=== PATIENT | female | born 1970 | race Caucasian/White ===

== ENCOUNTER 2017-03-31 14:28 | Emergency (ER) | payer MEDICAID ==
[2017-03-31 15:00] VITALS: BMI 23.8
[2017-03-31] MEDS ORDERED: Sodium Chloride 0.9% 500 ML IV ONE ×2 (16:29→16:46)
--- NOTE | 2017-03-31 16:32 | C.PDOC ---
History Of Present Illness PT WAS WAITING OUTSIDE FOR 2 HOURS PRIOR WAS SEEING BY ME 46 yo female w/PMHx of bipolar come in for evaluation of epigastric pain, nausea developed since yesterday. Pt reports, pain is localized, non-radiating, intermittent, aching. Pt sts, " recently had my gallbladder removed, want to make sure all is good". Otherwise, pt denies fever, chills, sore throat, CP, SOB , dyspnea, diaphoresis, palpitation, V/D, hematemesis, melena, back pain, UTI sx. Ambulate to ED for evaluation, not in any apparent distress. Time Seen by Provider: 03/31/17 16:04 Chief Complaint (Nursing): Abdominal Pain History Per: Patient Past Medical History Reviewed: Historical Data, Nursing Documentation, Vital Signs Vital Signs: Last Vital Signs Temp 98.3 F 03/31/17 18:17 Pulse 64 03/31/17 18:17 Resp 18 03/31/17 18:17 BP 105/71 03/31/17 18:17 Pulse Ox 99 03/31/17 18:17 - Medical History PMH: Bipolar Disorder Surgical History: Carotid Endarterectomy, Cholecystectomy Family History: States: No Known Family Hx - Social History Hx Tobacco Use: No Hx Alcohol Use: No Hx Substance Use: No Review Of Systems Except As Marked, All Systems Reviewed And Found Negative. Constitutional: Negative for: Fever, Chills Eyes: Negative for: Vision Change ENT: Negative for: Ear Discharge, Nose Discharge, Throat Pain, Throat Swelling Cardiovascular: Negative for: Chest Pain Respiratory: Negative for: Cough, Shortness of Breath, Wheezing Gastrointestinal: Positive for: Abdominal Pain. Negative for: Vomiting, Diarrhea, Melena, Hematochezia, Hematemesis Genitourinary: Negative for: Dysuria, Frequency Musculoskeletal: Negative for: Neck Pain, Back Pain Skin: Negative for: Rash Neurological: Negative for: Weakness, Numbness, Altered Mental Status, Headache , Dizziness Physical Exam - Physical Exam Appears: Well, Non-toxic, No Acute Distress Skin: Normal Color, Warm, No Rash Head: Normacephalic Eye(s): bilateral: PERRL Oral Mucosa: Moist Throat: No Drooling Neck: Supple Cardiovascular: Rhythm Regular, No Murmur, No JVD Respiratory: No Decreased Breath Sounds, No Accessory Muscle Use, No Rales Gastrointestinal/Abdominal: Soft, Tenderness (mild epigastric), No Distention, No Guarding Back: No CVA Tenderness Extremity: Normal ROM, No Pedal Edema, No Deformity Neurological/Psych: Oriented x3, Normal Speech ED Course And Treatment - Laboratory Results Result Diagrams: 03/31/17 16:36 03/31/17 16:36 Lab Interpretation: Normal O2 Sat by Pulse Oximetry: 98 Pulse Ox Interpretation: Normal Progress Note: On re-evaluation, pt is afebrile, hemodynamicaly stable. Non- toxic. AMbulatory in ED with stable gait. ENT: no acute findings. Lungs: CTA B/L, BS equal B/L. Abd: benign, (-) guarding, (-) rebound, (-) localized tenderness. Back: (-) CVA tenderness. Blood work review and appears normal. UA c/w UTI. PT advised on course of ds. ref. to F/U with PMD in 2-3 days for re-eavl. return to ED if any worsening or new changes. Disposition Counseled Patient/Family Regarding: Studies Performed, Diagnosis, Need For Followup, Rx Given - Disposition Referrals: [facility] [Outside] Disposition: HOME/ ROUTINE Disposition Time: 17:39 Condition: STABLE Additional Instructions: ENCOURAGE FLUIDS CRANBERRY SUPPLEMENT TAKE MEDICATION PRESCRIBED FOLLOW UP WITH PMD IN 2-3 DAYS FOR RE-EVALUATION. RETURN TO ED IF ANY WORSENING OR NEW CHANGES, Prescriptions: Nitrofurantoin Macrocrystals [Macrobid] 1 cap PO BID #14 cap Instructions: Urinary Tract Infection in Women (ED) Forms: [employer] ([place]i) - Clinical Impression Clinical Impression: UTI (urinary tract infection)
[2017-03-31 16:45] LABS: BASO # 0.1 K/uL (0.0-0.2); EOS # 0.1 K/uL (0.0-0.7); EOS % 1.1 % (0.0-4.0); HEMATOCRIT 40.5 % (34.0-47.0); MEAN CELL VOLUME 89.9 fL (81.0-99.0); MEAN CORPUSCULAR HEMOGLOBIN 30.1 pg (27.0-31.0); MEAN CORPUSCULAR HGB CONC 33.5 g/dL (33.0-37.0); MEAN PLATELET VOLUME 9.9 fL (7.2-11.7); MONO # 0.5 K/uL (0.0-0.8); MONO % 7.7 % (0.0-10.0); NRBC % 0.1 % (0.0-2.0); RED CELL DISTRIBUTION WIDTH 13.4 % (11.5-14.5); WHITE BLOOD COUNT 6.8 K/uL (4.8-10.8)
[2017-03-31 16:51] LABS: RBC URINE 8 /hpf (0-3); URINE BACTERIA RARE (<OCC); URINE BILIRUBIN NEGATIVE (NEGATIVE); URINE BLOOD NEGATIVE (NEGATIVE); URINE COLOR Yellow (YELLOW); URINE GLUCOSE (UA) NORMAL (Normal); URINE KETONE TRACE mg/dL (NEGATIVE); URINE LEUKOCYTE ESTERASE 3+ Leu/uL (Negative); URINE PROTEIN NEGATIVE (NEGATIVE); URINE UROBILINOGEN NORMAL mg/dL (0.2-1.0); WBC URINE 17 /hpf (0-5)
[2017-03-31 16:54] LABS: ALKALINE PHOSPHATASE 48 U/L (38-126); ALT/SGPT 49 U/L (9-52); AST/SGOT 38 U/L (14-36); BILIRUBIN,TOTAL 1.7 mg/dL (0.2-1.3); BLOOD UREA NITROGEN 10 mg/dL (7-17); CALCIUM 8.9 mg/dl (8.6-10.4); CARBON DIOXIDE 33 mmol/L (22-30); CHLORIDE 98 mmol/L (98-107); GFR AFRICAN-AMERICAN > 60; GLUCOSE,RANDOM 85 mg/dL (65-105); POTASSIUM 3.8 mmol/L (3.6-5.2); SODIUM 141 mmol/L (132-148); TOTAL PROTEIN 8.4 g/dL (6.3-8.3)
[2017-03-31 17:32] VITALS: RESP 18
[2017-03-31 18:18] VITALS: BP 105/71; PULSE 64; TEMP 98.3
[2017-04-01 08:32] VITALS: O2SAT 98
== END 2017-03-31 18:56 | disposition home or self-care (01) ==
LOC: C.ER 14:28
DX: N39.0 Urinary tract infection, site not specified (principal)
CPT/HCPCS: 80053; 81001; 83690; 85025; 96361; 96365; 96375; 99284; J0696; J2405; J7040

== ENCOUNTER 2017-05-06 13:40 | Emergency (ER) | payer MEDICAID ==
[2017-05-06 13:40] VITALS: BMI 23.8
[2017-05-06 14:02] VITALS: O2SAT 100
--- NOTE | 2017-05-06 14:20 | C.PDOC ---
History Of Present Illness 47 yo female come in for evaluation of bodyaches, nasal congestion, runny nose , sore throat, dry cough gradually developed for past 2 days. Otherwise, pt denies high fever, chills, headache, dizziness, drooling, neck pain, CP, SOB, wheezing, palpitation, abd. pain, V/D, rash, denies recent travel or known sick contact. At the time of evaluation, pt is awake, comfortable, not in any apparent distress Time Seen by Provider: 05/06/17 14:14 Chief Complaint (Nursing): Cough, Cold, Congestion History Per: Patient Onset/Duration Of Symptoms: Gradual Past Medical History Reviewed: Historical Data, Nursing Documentation, Vital Signs Vital Signs: Last Vital Signs Temp 98.4 F 05/06/17 15:23 Pulse 88 05/06/17 15:23 Resp 16 05/06/17 15:23 BP 126/78 05/06/17 15:23 Pulse Ox 100 05/06/17 15:23 - Medical History PMH: Anxiety, Bipolar Disorder Surgical History: Carotid Endarterectomy, Cholecystectomy Family History: States: No Known Family Hx - Social History Hx Tobacco Use: No Hx Alcohol Use: No Hx Substance Use: No - Immunization History Hx Tetanus Toxoid Vaccination: No Hx Influenza Vaccination: No Hx Pneumococcal Vaccination: No Review Of Systems Except As Marked, All Systems Reviewed And Found Negative. Constitutional: Negative for: Fever, Chills ENT: Positive for: Nose Discharge, Nose Congestion, Throat Pain. Negative for: Throat Swelling Cardiovascular: Negative for: Chest Pain, Palpitations, Orthopnea Respiratory: Positive for: Cough. Negative for: Shortness of Breath, Wheezing Gastrointestinal: Negative for: Nausea, Vomiting, Abdominal Pain, Diarrhea Genitourinary: Negative for: Dysuria, Frequency Musculoskeletal: Negative for: Neck Pain, Back Pain Skin: Negative for: Rash Neurological: Negative for: Weakness, Numbness, Altered Mental Status, Headache , Dizziness Physical Exam - Physical Exam Appears: Well, Non-toxic, No Acute Distress Skin: Normal Color, Warm, Dry, No Rash Head: Normacephalic Eye(s): bilateral: PERRL Ear(s): Bilateral: Normal Nose: No Flaring, Discharge Oral Mucosa: Moist, No Drooling Throat: Erythema (mod B/L), Exudate (scant B/L), No Drooling Neck: Trachea Midline, Supple Cardiovascular: Rhythm Regular Respiratory: No Decreased Breath Sounds, No Accessory Muscle Use, No Stridor, No Wheezing Gastrointestinal/Abdominal: Soft, No Tenderness, No Distention, No Guarding Back: No CVA Tenderness Extremity: Normal ROM, No Deformity, No Swelling Neurological/Psych: Oriented x3, Normal Speech ED Course And Treatment O2 Sat by Pulse Oximetry: 100 Pulse Ox Interpretation: Normal Progress Note: On re-eval, pt is afebrile, hemodynamicaly stable. Non-toxic. Tolerate Po well in ED. PuslEOx 100% RA. ENT: exam c/w acute pharyngitis, uvula midline, no edema. neck: SUpple, (-) meningeal sign. Lungs: CTA B/L, BS equal B/L. Abd: benign, (-) guarding, (-) rebound. Back: (-) CVA tenderness. Pt advised. ref. to F/u with Ped in 2-3 days for re-eavl. return if any new chanegs. Disposition Counseled Patient/Family Regarding: Diagnosis, Need For Followup, Rx Given - Disposition Referrals: [facility] at [facility] [Outside] Disposition: HOME/ ROUTINE Disposition Time: 14:43 Condition: STABLE Additional Instructions: Take medication as prescribed Encourage fluids Follow up with PMD in 2-3 days for re-evaluation. return to ED if any worsening or new changes. Prescriptions: Azithromycin [Zithromax] 250 mg PO DAILY #4 tab Benzonatate [Tessalon Perle] 100 mg PO TID #10 capsule Ibuprofen [Motrin] 1 tab PO TID PRN #14 tab PRN Reason: Pain Instructions: Pharyngitis (ED) Forms: [employer] (Serbian) - Clinical Impression Clinical Impression: Pharyngitis
[2017-05-06] MEDS ORDERED: Albuterol 0.083% Inhal Sol (2.5 mg/3 mL) UD IH STA (14:38)
[2017-05-06] MEDS ORDERED: Albuterol 0.083% Inhal Sol (2.5 mg/3 mL) UD ONE (15:07)
[2017-05-06 15:23] VITALS: BP 126/78; PULSE 88; RESP 16; TEMP 98.4
== END 2017-05-06 15:39 | disposition home or self-care (01) ==
LOC: C.ER 13:40
DX: J02.9 Acute pharyngitis, unspecified (principal)

== ENCOUNTER 2017-05-28 09:01 | Emergency (ER) | payer MEDICAID ==
[2017-05-28 09:01] VITALS: BMI 23.8
[2017-05-28 09:20] VITALS: PULSE 72
[2017-05-28] MEDS ORDERED: Bacitracin 500 Units/gm Oint Foilpak UD TOP ONE (10:01)
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
[2017-05-28] MEDS ORDERED: Bacitracin 500 Units/gm Oint Foilpak UD ONE (10:10)
[2017-05-28 10:13] VITALS: BP 118/78; RESP 14; TEMP 98.3; O2SAT 96
== END 2017-05-28 10:13 | disposition home or self-care (01) ==
LOC: C.ER 09:01
DX: S00.81XA Abrasion of other part of head, initial encounter (principal); S20.221A Contusion of right back wall of thorax, initial encounter; S60.221A Contusion of right hand, initial encounter; Y04.2XXA Assault by strike against or bumped into by another person, initial encounter; Y92.89 Other specified places as the place of occurrence of the external cause

== ENCOUNTER → 2017-06-26 19:06 | Emergency (ER) | payer MEDICAID ==
[2017-06-26 19:06] VITALS: BMI 23.8
== END | disposition left against medical advice (07) ==
LOC: C.ER 19:06
DX: Z02.89 Encounter for other administrative examinations (principal); R52 Pain, unspecified

== ENCOUNTER 2017-06-27 18:14 | Emergency (ER) | payer MEDICAID ==
[2017-06-27 18:15] VITALS: BMI 23.8
[2017-06-27 18:26] VITALS: RESP 18
[2017-06-27] MEDS ORDERED: Sodium Chloride 0.9% 1,000 ML IV ONE (19:06)
--- NOTE | 2017-06-27 19:16 | C.PDOC ---
History Of Present Illness 47 y/o female, hx of bipolar disorder, presents to ED with complaints of right flank pain that began 5 days ago. Patient states "pain gets worst before a bowel movement." Denies hematuria or any urinary symptoms. Time Seen by Provider: 06/27/17 19:01 Chief Complaint (Nursing): Back Pain History Per: Patient History/Exam Limitations: no limitations Onset/Duration Of Symptoms: Days (5) Current Symptoms Are (Timing): Still Present Quality Of Discomfort: "Pain" Previous Symptoms: None Associated Symptoms: None Exacerbating Factor(s): Nothing Recent travel outside of the [place]: No Past Medical History Reviewed: Historical Data, Nursing Documentation, Vital Signs Vital Signs: Last Vital Signs Temp 97.7 F 06/27/17 22:18 Pulse 71 06/27/17 22:18 Resp 18 06/27/17 22:18 BP 119/79 06/27/17 22:18 Pulse Ox 100 06/27/17 22:18 - Medical History PMH: Anxiety, Bipolar Disorder, Hyperthyroidism Surgical History: Carotid Endarterectomy, Cholecystectomy Family History: States: Unknown Family Hx - Social History Hx Tobacco Use: No Hx Alcohol Use: No Hx Substance Use: No - Immunization History Hx Tetanus Toxoid Vaccination: Yes (2 YEARS AGO) Hx Influenza Vaccination: No Hx Pneumococcal Vaccination: No Review Of Systems Constitutional: Negative for: Fever, Chills Gastrointestinal: Negative for: Nausea, Vomiting, Diarrhea Genitourinary: Negative for: Dysuria, Hematuria Musculoskeletal: Positive for: Other (Right flank pain) Neurological: Negative for: Weakness, Numbness Physical Exam - Physical Exam Appears: Well, Non-toxic, No Acute Distress Skin: Normal Color, Warm, Dry Head: Atraumatic, Normacephalic Eye(s): bilateral: Normal Inspection Oral Mucosa: Moist Neck: Supple Chest: Symmetrical, No Tenderness Cardiovascular: Rhythm Regular Respiratory: Normal Breath Sounds, No Decreased Breath Sounds, No Rales, No Rhonchi, No Wheezing Gastrointestinal/Abdominal: Soft, No Tenderness Neurological/Psych: Oriented x3, Normal Speech, Normal Cognition ED Course And Treatment - Laboratory Results Result Diagrams: 06/27/17 19:22 06/27/17 19:22 O2 Sat by Pulse Oximetry: 97 (RA) Pulse Ox Interpretation: Normal - CT Scan/US CT Abdomen&Pelvis Other Rad Studies (CT/US): Read By Radiologist, Radiology Report Reviewed CT/US Interpretation: EXAM: CT Abdomen and Pelvis Without Intravenous Contrast. CLINICAL HISTORY: 47 years old, female; Pain; Abdominal pain; Flank; Right lower quadrant (rlq);. Additional info: Right flank pain. TECHNIQUE: Axial computed tomography images of the abdomen and pelvis without intravenous. contrast. All CT scans at this facility use one or more dose reduction techniques, viz.: automated. exposure control; ma/kV adjustment per patient size (including targeted exams where dose is. matched to indication; i.e. head) ; or iterative reconstruction technique. COMPARISON: No relevant prior studies available. FINDINGS: Lower thorax: No acute findings. ABDOMEN: Liver: Unremarkable. Gallbladder and bile ducts: Cholecystectomy. No ductal dilation. Pancreas: Unremarkable. No ductal dilation. Spleen: Unremarkable. No splenomegaly. Adrenals: Unremarkable. No mass. Kidneys and ureters: Unremarkable. No stones within either kidney or ureter and no hydronephrosis. Stomach and bowel: Mucosal thickening in the colon concerning for colitis. No obstruction. Appendix: Normal appendix. PELVIS: Bladder: Surgical clip is seen over the dome of the right hepatic lobe. This is probably a fallen. cystectomy clip. MATT VU | Preliminary Radiology Report. IMPLANT COORDINATOR (QA) DISCREPANCY? If there is a discrepancy between the preliminary and final interpretation, please notify [facility] via [email or web address]. If you do not have access to our QA portal, call our QA team at [phone]. CONFIDENTIALITY STATEMENT. This report is intended only for the use of the referring physician, and only in accordance with law, If you received this in error, call [phone]. Page 2 of 2. Reproductive: Unremarkable as visualized. ABDOMEN and PELVIS: Intraperitoneal space: Unremarkable. No free air. No significant fluid collection. Bones/joints : No acute fracture. No dislocation. Soft tissues: Unremarkable. Vasculature: Unremarkable. No abdominal aortic aneurysm. Lymph nodes: Unremarkable. No enlarged lymph nodes. IMPRESSION: 1. No stones within either kidney or ureter and no hydronephrosis. 2. Normal appendix. 3. Mucosal thickening in the colon concerning for colitis. Medical Decision Making Medical Decision Making: ro uti, renal colic. - lasb imaging pending Ordered CT Abd& Pelvis, blood work, and urinalysis. Administered IV fluid. pt reassesed pain resolved. multiple times askingfor dc. agrees to wait for ct results. ct shows possible colitis. will treat. abd soft nottp. advise outpt fu and return precautions Disposition - Disposition Referrals: Jaylen Garcia MD [Staff Provider] - Disposition: HOME/ ROUTINE Disposition Time: 10:00 Condition: STABLE Additional Instructions: follow up with your doctor and specialist. return to er with worsening symptoms or concerns. Prescriptions: Ciprofloxacin [Cipro] 500 mg PO BID #20 tab metroNIDAZOLE [Flagyl] 500 mg PO TID #30 tab Instructions: Urinary Tract Infection, Adult (DC), Acute Abdomen (Belly Pain) Forms: [employer] ([place]izen [place]) - Clinical Impression Clinical Impression: UTI (urinary tract infection), Colitis, Flank pain - Scribe Statement The provider has reviewed the documentation as recorded by the Scribe Lyndsey Perrin All medical record entries made by the Keelyibolya were at my direction and personally dictated by me. I have reviewed the chart and agree that the record accurately reflects my personal performance of the history, physical exam, medical decision making, and the department course for this patient. I have also personally directed, reviewed, and agree with the discharge instructions and disposition.
[2017-06-27 19:25] LABS: BASO # 0.1 K/uL (0.0-0.2); EOS # 0.1 K/uL (0.0-0.7); EOS % 0.9 % (0.0-4.0); HEMOGLOBIN 12.2 g/dL (11.0-16.0); LYMPH # 2.2 K/uL (1.0-4.3); LYMPH % 23.7 % (20.0-40.0); MEAN CORPUSCULAR HEMOGLOBIN 29.9 pg (27.0-31.0); MEAN CORPUSCULAR HGB CONC 34.2 g/dL (33.0-37.0); MEAN PLATELET VOLUME 9.5 fL (7.2-11.7); MONO # 0.7 K/uL (0.0-0.8); MONO % 7.4 % (0.0-10.0); NEUT # 6.1 K/uL (1.8-7.0); RBC 4.08 Mil/uL (3.80-5.20); RED CELL DISTRIBUTION WIDTH 13.4 % (11.5-14.5); WHITE BLOOD COUNT 9.1 K/uL (4.8-10.8)
[2017-06-27 19:29] LABS: MEAN CELL VOLUME 87.3 fL (81.0-99.0)
[2017-06-27 19:32] LABS: SQUAMOUS EPITHIAL 3 /hpf (0-5); URINE BILIRUBIN NEGATIVE (NEGATIVE); URINE BLOOD NEGATIVE (NEGATIVE); URINE CLARITY Hazy (Clear); URINE COLOR Yellow (YELLOW); URINE GLUCOSE (UA) NORMAL (Normal); URINE LEUKOCYTE ESTERASE 2+ Leu/uL (Negative); URINE PROTEIN NEGATIVE (NEGATIVE); URINE UROBILINOGEN NORMAL mg/dL (0.2-1.0)
[2017-06-27] MEDS ORDERED: Sodium Chloride 0.9% 1,000 ML ONE (19:34)
[2017-06-27 19:35] LABS: HCG,QUALITATIVE URINE NEGATIVE (NEGATIVE)
[2017-06-27 19:37] LABS: ALB/GLOB RATIO 1.1 (1.0-2.1); ALBUMIN 3.9 g/dL (3.5-5.0); ALT/SGPT 78 U/L (9-52); AST/SGOT 53 U/L (14-36); BLOOD UREA NITROGEN 9 mg/dL (7-17); CALCIUM 9.2 mg/dl (8.6-10.4); GFR AFRICAN-AMERICAN > 60; GFR NON-AFRICAN AMERICAN > 60; LIPASE 47 U/L (23-300)
[2017-06-27 19:39] LABS: INR 1.1
[2017-06-27 22:19] VITALS: BP 119/79; PULSE 71; TEMP 97.7
[2017-06-27 23:30] VITALS: O2SAT 97
--- NOTE | 2017-06-28 09:43 | CT ---
PROCEDURE: CT Abdomen and Pelvis without Oral or IV contrast. HISTORY: right flank pain COMPARISON: None available TECHNIQUE: Contiguous axial images of the abdomen and pelvis. No oral or IV contrast administered. Coronal and Sagittal reformats generated. Radiation dose: Total exam DLP = 552.24 mGy-cm. This CT exam was performed using one or more of the following dose reduction techniques: Automated exposure control, adjustment of the mA and/or kV according to patient size, and/or use of iterative reconstruction technique. FINDINGS: There is limited evaluation of the solid organs without the administration of IV contrast. LOWER THORAX: No visible consolidation, pleural effusion, or pneumothorax. LIVER: Hepatomegaly. Probable surgical clip at the dome of the right hepatic lobe may be related to cholecystectomy clips. GALLBLADDER AND BILE DUCTS: Cholecystectomy. PANCREAS: Unremarkable unenhanced appearance. SPLEEN: Unremarkable unenhanced appearance. ADRENALS: Unremarkable unenhanced appearance. KIDNEYS AND URETERS: No hydronephrosis or obstructing renal calculus. BLADDER: Under distended urinary bladder limits evaluation. REPRODUCTIVE: Uterus is present. Question prominence of the cervix is well as left ovarian cyst measuring approximately 2.4 cm. Recommend correlation with pelvic ultrasound and pelvic exam. APPENDIX: The presumed appendix measures approximately 6-7 mm, mildly prominent ; no secondary signs of acute appendicitis. BOWEL: The stomach is nondistended. Lack of oral contrast limits evaluation for bowel pathology. The bowel loops appear within normal limits of caliber without evidence of intestinal obstruction. Mucosal thickening of the colon may be seen in the setting of colitis, correlate clinically. PERITONEUM: No significant free fluid. No definite free air. LYMPH NODES: No bulky lymphadenopathy identified. VASCULATURE: No aortic aneurysm. BONES: No acute osseous abnormality is detected. OTHER FINDINGS: None. IMPRESSION: Hepatomegaly. Mucosal thickening of the colon may be seen in the setting of colitis, correlate clinically. Question prominence of the cervix as well as suspected left ovarian cyst measuring approximately 2.4 cm. Recommend correlation with pelvic ultrasound and pelvic exam. The presumed appendix measures approximately 6-7 mm, mildly prominent ; no secondary signs of acute appendicitis. Study marked for PA review.
== END 2017-06-27 22:20 | disposition home or self-care (01) ==
LOC: C.ER 18:14
DX: N39.0 Urinary tract infection, site not specified (principal); K52.9 Noninfective gastroenteritis and colitis, unspecified
CPT/HCPCS: 74176; 80053; 80164; 81001; 83690; 84703; 85025; 85610; 85730; 96365; 99285; J0696; J7040

== ENCOUNTER 2018-02-01 12:51 | Emergency (ER) | payer MEDICAID ==
[2018-02-01 12:59] VITALS: BMI 25.6
[2018-02-01 13:02] VITALS: O2SAT 98
--- NOTE | 2018-02-01 15:05 | RAD ---
HISTORY: cough, fever COMPARISON: None available TECHNIQUE: Chest PA and lateral FINDINGS: LUNGS: No focal consolidation. Please note that chest x-ray has limited sensitivity for the detection of pulmonary masses. PLEURA: No significant pleural effusion identified. No definite pneumothorax . CARDIOVASCULAR: Heart size appears within normal limits. OSSEOUS STRUCTURES: Degenerative changes of the spine. VISUALIZED UPPER ABDOMEN: Unremarkable. OTHER FINDINGS: None. IMPRESSION: No focal consolidation, significant pleural effusion, or definite pneumothorax identified.
--- NOTE | 2018-02-01 15:17 | C.PDOC ---
History Of Present Illness 47 year old female presents to the emergency department with complaints of cough, runny nose, and body aches for the past two days. Patient states that the cough is worse at night. She denies fever, vomiting, shortness of breath, trauma, or recent travel. Time Seen by Provider: 02/01/18 13:46 Chief Complaint (Nursing): Cough, Cold, Congestion History Per: Patient History/Exam Limitations: no limitations Onset/Duration Of Symptoms: Days (2) Current Symptoms Are (Timing): Still Present Past Medical History Reviewed: Historical Data, Nursing Documentation, Vital Signs Vital Signs: Last Vital Signs Temp 98.4 F 02/01/18 12:58 Pulse 84 02/01/18 12:58 Resp 20 02/01/18 12:58 BP 111/73 02/01/18 12:58 Pulse Ox 98 02/01/18 12:58 - Medical History PMH: Anxiety, Bipolar Disorder, Hyperthyroidism Surgical History: Carotid Endarterectomy, Cholecystectomy Family History: States: No Known Family Hx - Social History Hx Tobacco Use: No Hx Alcohol Use: No Hx Substance Use: No - Immunization History Hx Tetanus Toxoid Vaccination: Yes (2 YEARS AGO) Hx Influenza Vaccination: No Hx Pneumococcal Vaccination: No Review Of Systems Except As Marked, All Systems Reviewed And Found Negative. Constitutional: Positive for: Malaise. Negative for: Fever ENT: Positive for: Nose Discharge (rhinorrhea) Respiratory: Positive for: Cough. Negative for: Shortness of Breath Gastrointestinal: Negative for: Vomiting Physical Exam - Physical Exam Appears: Non-toxic, No Acute Distress Skin: Warm, Dry Head: Atraumatic, Normacephalic Eye(s): bilateral: Normal Inspection Nose: Normal Oral Mucosa: Moist Throat: Normal, No Erythema, No Exudate Neck: Normal, Trachea Midline, Supple Chest: Symmetrical, No Tenderness Cardiovascular: Rhythm Regular, No Murmur Respiratory: Normal Breath Sounds, No Rales, Rhonchi (scattered), No Wheezing Neurological/Psych: Oriented x3, Normal Speech, Normal Cognition ED Course And Treatment O2 Sat by Pulse Oximetry: 98 (RA) Pulse Ox Interpretation: Normal - Radiology CXR: Interpreted by Me CXR Interpretation: Yes: No Acute Disease. No: Infiltrates Progress Note: Plan: CXR. Claritin 10mg PO. Prednisone 40mg PO Medical Decision Making Medical Decision Making: On re-exam, the patient reports improvement of symptoms. Lungs are CTA, heart is RRR, abdomen is soft, non-tender and tolerating PO well. Ambulatory in the ED with steady gait. Follow up with the medical doctor within 1-2 days. Return if worsened. Disposition - Disposition Referrals: Christiano Crawford MD [Staff Provider] - Disposition: HOME/ ROUTINE Disposition Time: 15:16 Condition: GOOD Additional Instructions: Follow up with the medical doctor within 1-2 days without fail. Return if worsened. Prescriptions: Benzonatate [Tessalon Perles] 200 mg PO TID PRN #30 sgl PRN Reason: Cough Loratadine [Claritin] 10 mg PO DAILY #10 tab predniSONE [Prednisone] 20 mg PO BID #10 tab Instructions: Upper Respiratory Infection (ED) Forms: [employer] ([place]) - Clinical Impression Clinical Impression: Bronchitis, Viral disease - PA / ELECTRIC [employer]ER [employer]TER / Resident Statement MD/DO has reviewed & agrees with the documentation as recorded. - Scribe Statement The provider has reviewed the documentation as recorded by the Scribe All medical record entries made by the Scribe were at my direction and personally dictated by me. I have reviewed the chart and agree that the record accurately reflects my personal performance of the history, physical exam, medical decision making, and the department course for this patient. I have also personally directed, reviewed, and agree with the discharge instructions and disposition.
[2018-02-01 15:19] VITALS: BP 102/72; PULSE 73; RESP 18; TEMP 98.9
== END 2018-02-01 15:24 | disposition home or self-care (01) ==
LOC: C.ER 12:51
DX: J40 Bronchitis, not specified as acute or chronic (principal); B34.9 Viral infection, unspecified